=== PATIENT | female | born 1995 | race Two or more races ===

== ENCOUNTER 2018-01-20 15:14 | Emergency (ER) | payer MEDICAID ==
[~2018-01-20] VITALS: Ht 149.9 cm; Wt 54.4 kg
[2018-01-20 15:26] VITALS: BP 131/81
--- NOTE | 2018-01-20 15:52 | Emergency Room Report ---
History of Present Illness General Chief Complaint: Abdominal Pain Source: Patient Present Illness HPI This patient states that she has had abdominal pain, nausea and intermittent vomiting for the past week. She complains of pain in her epigastric region. She states that primarily feels full and gassy. She also has pain in her right lower abdomen. She states that initially when the symptoms first started one week ago she was constipated for several days. She states that since that time she has been having regular and normal bowel movements. She denies fever or chills. She has continued to feel nauseated. She is unsure on her last menstrual period. It. She does have the Implanon for control. She denies chest pain or shortness of breath. She has no other complaints. Allergies: Coded Allergies: No Known Allergies (Unverified , 01/20/18) Patient History Past Medical History: none Past Surgical History: none Social History: Reports: alcohol use - Occ, drug use - THC occ Reviewed Nursing Documentation: PMH: Agreed; PSxH: Agreed Nursing Documentation-PMH Past Medical History: No Stated History Review of Systems All Other Systems: negative except mentioned in HPI Physical Exam Vital Signs Date Time Temp Pulse Resp B/P (MAP) Pulse Ox O2 Delivery O2 Flow Rate FiO2 01/20/18 15:17 98.6 89 18 131/81 96 Room Air 98.6 Sp02 EP Interpretation: reviewed, normal General Appearance: no apparent distress, alert, GCS 15, non-toxic Head: normocephalic, atraumatic Eyes: bilateral eye normal inspection, bilateral eye PERRL ENT: hearing grossly normal, normal pharynx, no angioedema, normal voice Neck: full range of motion, supple/symm/no masses Respiratory: chest non-tender, lungs clear, normal breath sounds, speaking full sentences Cardiovascular #1: regular rate, rhythm, no edema Gastrointestinal: normal bowel sounds, soft, non-distended, no guarding, no rebound, tenderness - TTP in the epigastrium, RLQ and suprapubic region. Rectal: deferred Genitourinary: no CVA tenderness Musculoskeletal: back normal, gait/station normal, normal range of motion, non- tender Neurologic: alert, oriented x3, responsive, motor strength/tone normal, sensory intact, speech normal Psychiatric: judgement/insight normal, memory normal, mood/affect normal, no suicidal/homicidal ideation Skin: normal color, no rash, warm/dry, well hydrated Medical Decision Making Diagnostic Impression: Primary Impression: Abdominal pain Additional Impressions: Ovarian cyst UTI (urinary tract infection) ER Course This patient presents with lower abdominal pain. The pain was in the right lower pelvis and have been ongoing for more than one week. Based on history and physical exam I had a low suspicion for appendicitis, however, I suspected ovarian pass solid G. Therefore, I obtained an ultrasound of the pelvis and the patient was found to have a large right ovarian cyst. There is no evidence of torsion. The patient has a negative test. Patient's laboratory tests otherwise are unremarkable to include CBC, CMP and urinalysis. I suspect this patient's pain is related to the ovarian cyst. Patient was instructed to follow-up with her primary care physician and undergo a repeat ultrasound after 2 cycles. Overall, the patient's evaluation was benign. Patient was given close return precautions and follow-up instructions. Laboratory Tests Test 01/20/18 15:50 White Blood Count 9.2 K/UL (4.8-10.8) Red Blood Count 4.45 M/UL (4.20-5.40) Hemoglobin 14.0 G/DL (12.0-16.0) Hematocrit 40.7 % (37.0-47.0) Mean Corpuscular Volume 92 FL (80-99) Mean Corpuscular Hemoglobin 31.5 PG (27.0-31.0) H Mean Corpuscular Hemoglobin Concent 34.3 G/DL (32.0-36.0) Red Cell Distribution Width 11.7 % (11.6-14.8) Platelet Count 242 K/UL (150-450) Mean Platelet Volume 9.2 FL (6.5-10.1) Neutrophils (%) (Auto) 58.2 % (45.0-75.0) Lymphocytes (%) (Auto) 23.5 % (20.0-45.0) Monocytes (%) (Auto) 11.4 % (1.0-10.0) H Eosinophils (%) (Auto) 5.9 % (0.0-3.0) H Basophils (%) (Auto) 1.0 % (0.0-2.0) Urine Color Pale yellow Urine Appearance Clear Urine pH 8 (4.5-8.0) Urine Specific [place] 1.015 (1.005-1.035) Urine Protein Negative (NEGATIVE) Urine Glucose (UA) Negative (NEGATIVE) Urine Ketones Negative (NEGATIVE) Urine Occult Blood 2+ (NEGATIVE) H Urine Nitrite Negative (NEGATIVE) Urine Bilirubin Negative (NEGATIVE) Urine Urobilinogen 1 MG/DL (0.0-1.0) H Urine Leukocyte Esterase 1+ (NEGATIVE) H Urine RBC 0-2 /HPF (0 - 2) Urine WBC 5-10 /HPF (0 - 2) H Urine Squamous Epithelial Cells Moderate /LPF (NONE/OCC) H Urine Bacteria Few /HPF (NONE) Urine HCG, Qualitative Negative (NEGATIVE) Sodium Level 140 MMOL/L (136-145) Potassium Level 3.9 MMOL/L (3.5-5.1) Chloride Level 105 MMOL/L (98-107) Carbon Dioxide Level 29 MMOL/L (21-32) Anion Gap 6 mmol/L (5-15) Blood Urea Nitrogen 11 mg/dL (7-18) Creatinine 0.8 MG/DL (0.55-1.30) Estimate Glomerular Filtration Rate > 60 mL/min (>60) Glucose Level 94 MG/DL (74-106) Calcium Level 8.9 MG/DL (8.5-10.1) Total Bilirubin 0.2 MG/DL (0.2-1.0) Aspartate Amino Transferase (AST) 15 U/L (15-37) Alanine Aminotransferase (ALT) 24 U/L (12-78) Alkaline Phosphatase 70 U/L (46-116) Total Protein 7.7 G/DL (6.4-8.2) Albumin 3.8 G/DL (3.4-5.0) Globulin 3.9 g/dL Albumin/Globulin Ratio 1.0 (1.0-2.7) Lipase 106 U/L (73-393) Human Chorionic Gonadotropin, Qual Negative CT/MRI/US Diagnostic Results CT/MRI/US Diagnostic Results : Imaging Test Ordered: Pelvic US Impression R. ovarian cyst. See official report. Last Vital Signs Date Time Temp Pulse Resp B/P (MAP) Pulse Ox O2 Delivery O2 Flow Rate FiO2 01/20/18 15:26 98.6 84 18 131/81 96 Room Air 98.6 Status: improved Disposition: HOME, SELF-CARE Condition: Improved Daniela Lee DO Jan 20, 2018 15:52
[2018-01-20 16:10] LABS: APPEARANCE,URINE CLEAR; BILIRUBIN, URINE NEGATIVE (NEGATIVE); COLOR,URINE PALE YELLOW; EOSINOPHILS % (AUTO) 5.9 % (0.0-3.0); GLUCOSE, URINE (UA) NEGATIVE (NEGATIVE); HEMATOCRIT 40.7 % (37.0-47.0); KETONES,URINE NEGATIVE (NEGATIVE); LEUKOCYTE ESTERASE ,URINE 1+ (NEGATIVE); LYMPHOCYTES % (AUTO) 23.5 % (20.0-45.0); MEAN CORPUSCULAR VOLUME 92 FL (80-99); MONOCYTES % (AUTO) 11.4 % (1.0-10.0); NEUTROPHILS % (AUTO) 58.2 % (45.0-75.0); NITRITE,URINE NEGATIVE (NEGATIVE); PH,URINE 8 (4.5-8.0); PLATELET COUNT 242 K/UL (150-450); PROTEIN,URINE NEGATIVE (NEGATIVE); RED BLOOD COUNT 4.45 M/UL (4.20-5.40); RED CELL DISTRIBUTION WIDTH 11.7 % (11.6-14.8); UROBILINOGEN,URINE 1 MG/DL (0.0-1.0); WHITE BLOOD COUNT 9.2 K/UL (4.8-10.8)
[2018-01-20 16:22] LABS: ANION GAP 6 mmol/L (5-15); BLOOD UREA NITROGEN 11 mg/dL (7-18); CALCIUM 8.9 MG/DL (8.5-10.1); CARBON DIOXIDE 29 MMOL/L (21-32); CHLORIDE 105 MMOL/L (98-107); CREATININE 0.8 MG/DL (0.55-1.30); POTASSIUM 3.9 MMOL/L (3.5-5.1); SODIUM 140 MMOL/L (136-145)
[2018-01-20 16:26] LABS: ALANINE AMINOTRANSFERASE 24 U/L (12-78); ALBUMIN 3.8 G/DL (3.4-5.0); ALKALINE PHOSPHATASE 70 U/L (46-116); ASPARTATE AMINO TRANSFERASE 15 U/L (15-37); BILIRUBIN,TOTAL 0.2 MG/DL (0.2-1.0)
[2018-01-20 18:00] VITALS: BP 127/75
[2018-01-20] MEDS ORDERED: IBUPROFEN800 MG ORAL (18:01)
[2018-01-20] MEDS ORDERED: NITROFURANTOIN100 M2 ORAL (18:01)
[2018-01-20 18:40] VITALS: BP 127/75
--- NOTE | 2018-01-21 08:47 | Diagnostic Imaging Report ---
Indication: Pelvic pain, negative test Technique: Transabdominal and transvaginal images Comparison: none Findings: Uterus is retroflexed, measures 7.6 cm length by 2.9 cm AP. The right ovary measures 4.9 cm in length, demonstrates a 4 x 2.5 cm cyst. Left ovary measures 2.9 cm in length. No left adnexal mass. There is trace free cul-de-sac fluid IMPRESSION: Simple cyst in the right adnexa is almost certainly benign. In a woman of reproductive age, no imaging follow-up is required. In a post-menopausal woman, this should be followed yearly with ultrasound. Recommend pelvic ultrasound in 12 months. Trace free cul-de-sac fluid CITATION: Recommendations for adnexal cyst follow-up per Society of Radiologists in Ultrasound 2009 consensus statement on management of asymptomatic and ovarian and other adnexal cysts (Segura et al., Radiology 2010 256: 943-54).
== END 2018-01-20 18:40 | disposition home or self-care (01) ==
LOC: EMR 16:05
DX: N39.0 Urinary tract infection, site not specified (principal); N83.201 Unspecified ovarian cyst, right side; F12.10 Cannabis abuse, uncomplicated
CPT/HCPCS: 36415; 76830; 76856; 80053; 81003; 81025; 83690; 84703; 85025; 99284; J2405

== ENCOUNTER 2018-07-13 14:44 | Emergency (ER) | payer MEDICAID ==
[~2018-07-13] VITALS: Ht 149.9 cm; Wt 68.5 kg
[~2018-07-13 14:44] MED LIST: IBUPROFEN800 MG ORAL; NITROFURANTOIN100 M2 ORAL
[2018-07-13 15:00] VITALS: BP 120/85
--- NOTE | 2018-07-13 15:00 | NUR ---
ED Nurse Note: a/ox. ambulated in to ER due to bright red bleeding and dizziness x yesterday. Pt states that she just noticed bright red vaginal bleeding, spotting, LMP is 06/25/18. Also c/o right lower abdominal pain 10/14.
[2018-07-13] MEDS ORDERED: NKM (15:04)
[2018-07-13] MEDS ORDERED: Ketorolac 30mg Inj IV ONE (15:15)
--- NOTE | 2018-07-13 15:15 | Emergency Room Report ---
History of Present Illness General Chief Complaint: Female Urogenital Problems Source: Patient Present Illness HPI 23-year-old female patient presents the ER "I think my cyst popped". Also reports suprapubic discomfort on the right side during this time. Reports history of ovarian cyst diagnosed several months ago, states has not seen OB/ [facility] since that time. Reports vaginal bleeding that began last night. Denies passage of clots. Reports mild dizziness, denies syncope or fainting. Denies dysuria, hematuria. Denies fever, chest pain, shortness of breath. Denies diarrhea. Denies vomiting. Reports acid reflux for the past 2 weeks. Denies hematemesis. Denies concern for STI. Denies pain with sex. denies onset during sexual intercourse. Reports bleeding "seems different than menstrual bleeding". Allergies: Coded Allergies: No Known Allergies (Unverified , 07/13/18) Patient History Past Medical History: see triage record Last Menstrual Period: 06/25/18 Now: No Reviewed Nursing Documentation: PMH: Agreed; PSxH: Agreed Nursing Documentation-PMH Past Medical History: No History, Except For Hx Cardiac Problems: No - OVARIAN CYSTS Review of Systems All Other Systems: negative except mentioned in HPI Physical Exam Vital Signs Date Time Temp Pulse Resp B/P (MAP) Pulse Ox O2 Delivery O2 Flow Rate FiO2 07/13/18 14:59 98.2 63 16 120/85 98 Room Air Sp02 EP Interpretation: reviewed, normal General Appearance: well appearing, no apparent distress, alert, GCS 15, non- toxic Head: normocephalic, atraumatic Eyes: bilateral eye normal inspection, bilateral eye PERRL ENT: hearing grossly normal, normal pharynx, no angioedema, normal voice, uvula midline, moist mucus membranes Neck: full range of motion Respiratory: lungs clear, normal breath sounds, no rhonchi, no respiratory distress, no accessory muscle use, no wheezing, speaking full sentences Cardiovascular #1: regular rate, rhythm, no edema, normal capillary refill Gastrointestinal: non tender, soft, no mass, non-distended, no guarding, no rebound, other - Negative Rovsing Genitourinary: no CVA tenderness, deferred Musculoskeletal: back normal, digits/nails normal, gait/station normal, normal range of motion, non-tender Neurologic: alert, oriented x3, responsive, motor strength/tone normal, sensory intact Psychiatric: mood/affect normal Skin: no rash, normal turgor Lymphatic: no adenopathy Medical Decision Making PA Attestation Dr. Rios is my supervising Physician whom patient management has been discussed with. Diagnostic Impression: Primary Impression: Urinary tract infection Additional Impression: Ovarian cyst ER Course Pt presents to ED c/o vaginal bleeding x1day, states concern for ovarian cyst "popping". DDX considered but are not limited to threatened , ectopic, UTI, septic , fibroids, dysfunctional uterine bleeding, DUB, ruptured cyst, ovarian torsion, anemia. Negative Rovsing, no fever, low suspicion for appendicitis, does not require CT at this time. VITAL SIGNS are WNL, patient is afebrile Pelvic exam: deferred. Ordered CBC, CMP, Type and Screen, UA, UCG, IV NS and pelvic US. Toradol for pain control. ER COURSE: CBC and CMP unremarkable, no elevation in WBCs, LFTs, or lipase, H&H within normal limits, no signs of anemia. UA results shows positive bacteria, likely infection will treat with abx. Urine negative, low suspicion for ectopic. Lipase WNL Rh antibody negative Blood type A positive Results discussed with patient. Pelvic US right ovarian cyst, no free fluid, no torsion. Results discussed with patient. Patient resting comfortably, in no acute distress, nontoxic appearing. Patient reports pain symptoms resolved since onset. F/u with OBGYN. Provided with contact information for SURGEON/PRESIDENT specialist and free low-cost healthcare clinics. Patient states she will follow-up and schedule appointment. ER precautions given. DISCHARGE: -Rx provided for Tylenol for pain -Rx provided for Macrobid At this time pt. is stable for d/c to home. At this time patient is resting comfortably, in no acute distress, nontoxic appearing, smiling and talking without difficulty. Will provide printed patient care instructions, and any necessary prescriptions. Patient instructed to follow with OBGYN for further treatment and referral as needed. Care plan and follow up instructions have been discussed with the patient prior to discharge. Patient reports understanding and agreement to treatment plan. Patient questions asked and answered. ER precautions given, patient instructed to return to ER immediately for any new or worsening of symptoms. - Please note that this Emergency Department Report was dictated using [employer] technology software, occasionally this can lead to erroneous entry secondary to interpretation by the dictation equipment. Labs Test 07/13/18 15:20 White Blood Count 9.0 K/UL (4.8-10.8) Red Blood Count 4.73 M/UL (4.20-5.40) Hemoglobin 14.6 G/DL (12.0-16.0) Hematocrit 44.8 % (37.0-47.0) Mean Corpuscular Volume 95 FL (80-99) Mean Corpuscular Hemoglobin 30.9 PG (27.0-31.0) Mean Corpuscular Hemoglobin Concent 32.7 G/DL (32.0-36.0) Red Cell Distribution Width 12.1 % (11.6-14.8) Platelet Count 279 K/UL (150-450) Mean Platelet Volume 9.1 FL (6.5-10.1) Neutrophils (%) (Auto) 50.2 % (45.0-75.0) Lymphocytes (%) (Auto) 34.6 % (20.0-45.0) Monocytes (%) (Auto) 9.1 % (1.0-10.0) Eosinophils (%) (Auto) 5.0 % (0.0-3.0) Basophils (%) (Auto) 1.1 % (0.0-2.0) Urine Color Pale yellow Urine Appearance Slightly cloudy Urine pH 8 (4.5-8.0) Urine Specific [place] 1.015 (1.005-1.035) Urine Protein Negative (NEGATIVE) Urine Glucose (UA) Negative (NEGATIVE) Urine Ketones Negative (NEGATIVE) Urine Blood 2+ (NEGATIVE) Urine Nitrite Negative (NEGATIVE) Urine Bilirubin Negative (NEGATIVE) Urine Urobilinogen 1 MG/DL (0.0-1.0) Urine Leukocyte Esterase Negative (NEGATIVE) Urine RBC 5-10 /HPF (0 - 2) Urine WBC 0-2 /HPF (0 - 2) Urine Squamous Epithelial Cells Few /LPF (NONE/OCC) Urine Amorphous Sediment Moderate /LPF (NONE) Urine Bacteria Many /HPF (NONE) Urine HCG, Qualitative Negative (NEGATIVE) Sodium Level 140 MMOL/L (136-145) Potassium Level 4.1 MMOL/L (3.5-5.1) Chloride Level 104 MMOL/L (98-107) Carbon Dioxide Level 27 MMOL/L (21-32) Anion Gap 9 mmol/L (5-15) Blood Urea Nitrogen 17 mg/dL (7-18) Creatinine 1.0 MG/DL (0.55-1.30) Estimat Glomerular Filtration Rate > 60 mL/min (>60) Glucose Level 93 MG/DL (74-106) Calcium Level 9.0 MG/DL (8.5-10.1) Total Bilirubin 0.2 MG/DL (0.2-1.0) Aspartate Amino Transf (AST/SGOT) 14 U/L (15-37) Alanine Aminotransferase (ALT/SGPT) 31 U/L (12-78) Alkaline Phosphatase 76 U/L (46-116) Total Protein 8.2 G/DL (6.4-8.2) Albumin 4.1 G/DL (3.4-5.0) Globulin 4.1 g/dL Albumin/Globulin Ratio 1.0 (1.0-2.7) Lipase 125 U/L (73-393) CT/MRI/US Diagnostic Results CT/MRI/US Diagnostic Results : Imaging Test Ordered: pelvic US 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: right ovarian cyst 1.4 cm no torsion no free fluid Last Vital Signs Date Time Temp Pulse Resp B/P (MAP) Pulse Ox O2 Delivery O2 Flow Rate FiO2 07/13/18 14:59 98.2 63 16 120/85 98 Room Air Disposition: HOME, SELF-CARE Condition: Stable Scripts Nitrofurantoin Monohyd/M-Cryst* (MACROBID 100 MG*) 100 Mg Capsule 100 MG ORAL EVERY 12 HOURS for 7 Days, #14 CAP Prov: Bienvenido Baez 07/13/18 Acetaminophen* (TYLENOL EXTRA STRENGTH*) 500 Mg Tablet 500 MG ORAL Q8H PRN for Prn Headache/Temp > 101, #30 TAB 0 Refills Prov: Bienvenido Baez 07/13/18 Patient Instructions: Dysfunctional Uterine Bleeding, Ovarian Cyst, Easy-to- Read, Urinary Tract Infection Additional Instructions: Followup with OBGYN in 1-2 days. Take medications as directed. Take Tylenol for pain, do not take Ibuprofen. Patient questions asked and answered. ER precautions given, patient instructed to return to ER immediately for any new or worsening of symptoms including but not limited to chest pain, SOB, intractable vomiting, profuse vaginal bleeding, abdominal pain. Bienvenido Baez Jul 13, 2018 15:15
--- NOTE | 2018-07-13 15:18 | NUR ---
ED Nurse Note: US tech contacted for US order.
[2018-07-13 15:41] LABS: BASOPHILS % (AUTO) 1.1 % (0.0-2.0); HEMATOCRIT 44.8 % (37.0-47.0); HEMOGLOBIN 14.6 G/DL (12.0-16.0); LYMPHOCYTES % (AUTO) 34.6 % (20.0-45.0); MEAN CORPUSCULAR VOLUME 95 FL (80-99); MONOCYTES % (AUTO) 9.1 % (1.0-10.0); NEUTROPHILS % (AUTO) 50.2 % (45.0-75.0); PLATELET COUNT 279 K/UL (150-450); RED BLOOD COUNT 4.73 M/UL (4.20-5.40); RED CELL DISTRIBUTION WIDTH 12.1 % (11.6-14.8)
[2018-07-13 15:42] LABS: APPEARANCE,URINE SLIGHTLY CLOUDY; BILIRUBIN, URINE NEGATIVE (NEGATIVE); COLOR,URINE PALE YELLOW; GLUCOSE, URINE (UA) NEGATIVE (NEGATIVE); KETONES,URINE NEGATIVE (NEGATIVE); LEUKOCYTE ESTERASE ,URINE NEGATIVE (NEGATIVE); NITRITE,URINE NEGATIVE (NEGATIVE); PH,URINE 8 (4.5-8.0); PROTEIN,URINE NEGATIVE (NEGATIVE); UROBILINOGEN,URINE 1 MG/DL (0.0-1.0)
[2018-07-13 16:04] LABS: ANION GAP 9 mmol/L (5-15); BLOOD UREA NITROGEN 17 mg/dL (7-18); CARBON DIOXIDE 27 MMOL/L (21-32); CHLORIDE 104 MMOL/L (98-107); POTASSIUM 4.1 MMOL/L (3.5-5.1); SODIUM 140 MMOL/L (136-145)
[2018-07-13 16:09] LABS: ALANINE AMINOTRANSFERASE 31 U/L (12-78); ALBUMIN 4.1 G/DL (3.4-5.0); ALKALINE PHOSPHATASE 76 U/L (46-116); ASPARTATE AMINO TRANSFERASE 14 U/L (15-37); BILIRUBIN,TOTAL 0.2 MG/DL (0.2-1.0)
[2018-07-13] MEDS ORDERED: NITROFURANTOIN100 M2 ORAL (16:47)
[2018-07-13] MEDS ORDERED: TYLENOL EXTRA500 MG ORAL (16:47)
--- NOTE | 2018-07-13 17:05 | Diagnostic Imaging Report ---
Indication: Pelvic pain, abnormal pelvic bleeding, negative test Technique: Transabdominal and transvaginal images of the pelvis. Doppler interrogation of the bilateral ovaries Comparison: 01/20/2018 Findings: Uterus measures 7.2 cm in length by 3.2 cm AP. The uterus is retroflexed. The and endometrium measures 1 mm thick. No myometrial abnormality. The right ovary measures 2.6 cm in length. The left ovary measures 2.6 cm in length. Previously demonstrated 3.9 cm right ovarian cyst is no longer evident; only normal follicles are present currently. No free cul-de-sac fluid. Both ovaries demonstrate normal blood flow on Doppler interrogation Impression: Negative
[2018-07-13 17:36] VITALS: BP 116/78
[2018-07-13 17:37] VITALS: BP 116/78
--- NOTE | 2018-07-13 17:37 | NUR ---
ED Nurse Note: Patient is being discharged from medical care. Awake, alert and oriented x4. After care instructions, including prescriptions. Patient verbalized understanding of After care instructions. Patient signed patient consent in the medical record for patient destination upon discharge. All medical devices such as IV and ID band were removed. Patient ambulated out with all personal belongings with steady gait.
== END 2018-07-13 17:38 | disposition home or self-care (01) ==
LOC: EMR 16:26
DX: N39.0 Urinary tract infection, site not specified (principal); N83.201 Unspecified ovarian cyst, right side; R42 Dizziness and giddiness
CPT/HCPCS: 36415; 76830; 76856; 80053; 81003; 81025; 83690; 85025; 86850; 86900; 86901; 87086; 96361; 96374; 96375; 99284; J1885; J2405; S0028